=== PATIENT | male | born 1990 | race Caucasian/White ===

== ENCOUNTER 2016-06-26 16:35 | Emergency (ER) | payer OTHER, BC ==
[2016-06-26 16:49] VITALS: BP 149/74
[2016-06-26] MEDS ORDERED: MORPHINE SULFATE 2 MG/ML DISP.SYRIN IV ONE (17:01)
[2016-06-26] MEDS ORDERED: ONDANSETRON HCL/PF 2 MG/ML VIAL IV ONE (17:01)
[2016-06-26] MEDS ORDERED: MORPHINE SULFATE 2 MG/ML DISP.SYRIN ONE (17:04)
[2016-06-26] MEDS ORDERED: ONDANSETRON HCL/PF 2 MG/ML VIAL ONE (17:05)
[2016-06-26] MEDS ORDERED: HYDROcodone/ACETAMINOPHEN 1 EACH TABLET PO ONE (18:14)
[2016-06-26] MEDS ORDERED: HYDROcodone/ACETAMINOPHEN 1 EACH TABLET ONE (18:20)
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
== END 2016-06-26 18:26 | disposition home or self-care (01) ==
LOC: ER 16:35
PROC: 2W3EX1Z Immobilization of Right Hand using Splint (ICD-10-PCS; principal; 2016-06-26)
DX: S52.501A Unspecified fracture of the lower end of right radius, initial encounter for closed fracture (principal); S52.611A Displaced fracture of right ulna styloid process, initial encounter for closed fracture; V49.9XXA Car occupant (driver) (passenger) injured in unspecified traffic accident, initial encounter

== ENCOUNTER 2016-07-01 09:47 | Day surgery (SDC) | payer OTHER, BC ==
[~2016-07-01 09:47] MED LIST: ACETAMINOPHEN 500 MG TABLET PO PRN; HYDROmorphone HCL 2 MG/ML VIAL IV PRN; MAG HYDROX/ALUMINUM HYD/SIMETH 30 ML UDC PO PRN; MAGNESIUM HYDROXIDE 30 ML UDC PO PRN; ONDANSETRON HCL/PF 2 MG/ML VIAL IV PRN; PROMETHAZINE HCL 25 MG in DEXTROSE 5 % IN WATER 50 ML IV PRN; RINGERS SOLUTION,LACTATED 1,000 ML IV PRN; ZOLPIDEM TARTRATE 5 MG TABLET PO PRN; ceFAZolin SODIUM 1 GM VIAL IV PRN; diphenhydrAMINE HCL 50 MG/ML VIAL IV PRN; oxyCODONE HCL/ACETAMINOPHEN 1 TAB TABLET PO PRN
[2016-07-01] MEDS ORDERED: RINGERS SOLUTION,LACTATED 1,000 ML IV ONE ×2 (10:25→11:30)
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
[2016-07-01 15:01] VITALS: BP 100/56
[2016-07-01] MEDS ORDERED: SENNOSIDES/DOCUSATE SODIUM 1 TAB TABLET PO SCH (21:00)
== END 2016-07-01 09:48 | disposition home or self-care (01) ==
LOC: AMB 09:47
PROVIDERS: ATTEND Orthopaedic Surgery
PROC: 0PSH04Z Reposition Right Radius with Internal Fixation Device, Open Approach (ICD-10-PCS; principal; 2016-07-01 12:45)
DX: S52.501S Unspecified fracture of the lower end of right radius, sequela (principal); X58.XXXA Exposure to other specified factors, initial encounter